=== PATIENT | female | born 1995 | race Caucasian/White ===

== ENCOUNTER 2019-08-10 21:07 | Emergency (ER) | payer OTHER ==
[~2019-08-10] VITALS: Ht 170.2 cm; Wt 86.4 kg
[2019-08-10 21:15] VITALS: TEMP 98
[2019-08-10] MEDS ORDERED: KYLEENA1 EACH IY (21:17)
[2019-08-11 00:02] VITALS: BP 143/79; PULSE 72
== END 2019-08-11 00:10 | disposition home or self-care (01) ==
LOC: COL.ER 21:07
DX: S43.084A Other dislocation of right shoulder joint, initial encounter (principal); Z87.39 Personal history of other diseases of the musculoskeletal system and connective tissue; X50.9XXA Other and unspecified overexertion or strenuous movements or postures, initial encounter; Y92.009 Unspecified place in unspecified non-institutional (private) residence as the place of occurrence of the external cause
CPT/HCPCS: J2250; J3010